=== PATIENT | male | born 1940 | race Caucasian/White ===

== ENCOUNTER 2020-10-05 14:39 | Observation (INO) | payer OTHER ==
[~2020-10-05] VITALS: Ht 172.7 cm; Wt 81.1 kg
[2020-10-05] MEDS ORDERED: PROSCAR 5MG TABL5 MG PO (15:29)
[2020-10-05] MEDS ORDERED: ASA81BEC PO (15:29)
[2020-10-05] MEDS ORDERED: METFORMIN HCL500 M3 PO (15:30)
[2020-10-05] MEDS ORDERED: FLOMAX0.4 MG PO (15:30)
[2020-10-05 15:43] VITALS: BP 96/58
[2020-10-05 15:56] LABS: HEMATOCRIT 37.6 % (42.0-52.0); HEMOGLOBIN 13.1 gm/dL (14.0-18.0); MCH 31.3 pg (26.0-34.0); MCHC 34.8 g/dL (28.0-37.0); MCV 90.1 fL (80.0-100.0); RBC 4.17 mil/uL (4.50-6.00); RDW 13.8 % (10.5-14.5); WBC 5.5 thou/uL (4.0-11.0)
[2020-10-05 16:01] LABS: ANION GAP 6 mmol/L (7-16); BUN 12 mg/dL (7-18); CALCIUM 8.7 mg/dL (8.5-10.1); CHLORIDE 100 mmol/L (98-107); CO2 28 mmol/L (21-32); CREATININE 0.8 mg/dL (0.7-1.3); GLUCOSE 92 mg/dL (74-106); SODIUM 134 mmol/L (136-145)
[2020-10-05 16:11] LABS: ALBUMIN 3.6 g/dL (3.4-5.0); SGOT 13 U/L (15-37); SGPT 18 U/L (30-65); TOTAL BILIRUBIN 0.7 mg/dL (0.2-1.0); TOTAL PROTEIN 6.5 g/dL (6.4-8.2); TROPONIN-I <0.06 ng/mL (<0.06)
[2020-10-05 16:35] LABS: CHOLESTEROL 171 mg/dL (<200); HDL CHOLESTEROL 44 mg/dL (>40); LDL CHOLESTEROL 116 mg/dL (<100); TC:HDL 3.9 Ratio (Not establshd); TRIGLYCERIDE 57 mg/dL (<150); VLDL 11 mg/dL (<40)
[2020-10-05 20:25] VITALS: BP 123/68
[2020-10-06 00:03] VITALS: BP 126/71
--- NOTE | 2020-10-06 02:03 | NUR ---
ASSUMED CARE OF PT AT 1900, ASSESSMENT COMPLETED NOTED. RIGHT MYNX CLOSURE CLEAN, DRY AND INTACT. PT DENIES CP, WILL CONTINUE TO MONITOR AND WORK TOWARDS PT'S POC.
[2020-10-06 03:49] LABS: HEMATOCRIT 34.6 % (42.0-52.0); HEMOGLOBIN 12.5 gm/dL (14.0-18.0); MCH 32.3 pg (26.0-34.0); MCHC 36.3 g/dL (28.0-37.0); RBC 3.89 mil/uL (4.50-6.00); RDW 13.6 % (10.5-14.5); WBC 6.8 thou/uL (4.0-11.0)
[2020-10-06 04:02] LABS: ALBUMIN 3.4 g/dL (3.4-5.0); ANION GAP 11 mmol/L (7-16); BUN 11 mg/dL (7-18); CALCIUM 8.3 mg/dL (8.5-10.1); CHLORIDE 99 mmol/L (98-107); CO2 25 mmol/L (21-32); CREATININE 0.8 mg/dL (0.7-1.3); GLUCOSE 97 mg/dL (74-106); POTASSIUM 3.9 mmol/L (3.5-5.1); SGOT 16 U/L (15-37); SGPT 19 U/L (30-65); SODIUM 135 mmol/L (136-145); TOTAL BILIRUBIN 0.8 mg/dL (0.2-1.0); TOTAL PROTEIN 6.2 g/dL (6.4-8.2); TROPONIN-I <0.06 ng/mL (<0.06)
[2020-10-06 05:26] VITALS: BP 126/71
--- NOTE | 2020-10-06 07:18 | EKG ---
[address] [email or web address] [address] ELECTROCARDIOGRAM REPORT Name: ELISE HURTADO Yane Room #: 214-P [facility] IN M.R.#: [id number] Admission: 10/05/20 Attend Phys: Nikolas Camacho MD, Discharge: Date of : 38 Report #: [id number] [facility] Test Date: 2020-10-05 Test Time: 15:29:16 Pat Name: ELISE HURTADO Department: Room: Gender: M Teen Counselor: FSCHWALBE : 1940 Requested By: Nikolas Camacho Order Number: [id number] MD: Eduardo Goddard Measurements Intervals [place] Rate: 51 P: MN: 188 QRS: -34 QRSD: 108 T: 0 QT: 427 QTc: 394 Interpretive Statements Atrial-paced complexes Left axis deviation Borderline low voltage, extremity leads Nonspecific T abnormalities, anterior leads No previous ECG available for comparison Electronically Signed On 10-06-2020 7:18:05 CDT by Eduardo Goddard [email or web address] <ELECTRONICALLY SIGNED> By: Eduardo Godadrd MD, [facility] 10/06/20 0718 D: [id number] 1529 Eduardo Goddard MD, FACC /EPI
[2020-10-06] MEDS ORDERED: LIPITOR40 MG PO (08:03)
[2020-10-06] MEDS ORDERED: EFFIENT10 MG PO (08:03)
[2020-10-06 09:01] VITALS: BP 126/63
[2020-10-06 10:18] VITALS: BP 126/63
--- NOTE | 2020-10-06 11:02 | NUR ---
PT RESTING COMFORTABLY WITH AT BEDSIDE. PT DC AT APPROX 1045 VIA WHEEL CHAIR AND . PT AFEBRILE, ADEQUATE UOP, NO BM, APPROPRIATE APPETITE. RIGHT GROIN SITE C/D/I, NO HEMATOMA, NO PAIN. PT AND WERE THOUROUGHLY UPDATED AND EDUCATED ON PT CONDITION, POC, AND DC INSTRUCTIONS. PT PROGRESSED TOWARDS POC.
--- NOTE | 2020-10-08 11:01 | CATHLAB ---
[facility] [place] [address] INVASIVE PROCEDURE REPORT Name: ELISE HURTADO Room #: 214-P [facility] Terrie Love#: [id number] Admission: 10/05/20 Attend Phys: Nikolas Camacho MD, Discharge: 10/06/20 Date of : 38 Report #: [id number] THIS REPORT FOR: cc: Lalit Simmons James L. DO Mancuso, Gerald M. MD [facility] ~ APPROVED REPORT Study performed: 10/05/2020 16:14:18 Patient Details Patient Status: IN Room #: The patient is a 80 year-old male Event Personnel Nikolas Camacho Weeder, Kisha Adam RN RN, Felisa Bell RTR Robel Lopez Alison RT(R)() Monitor Procedures Performed Art Access - R femoral artery* BILL Place w/wo Plasty Single LAD 144860 BILL Place w/wo Plasty Addl BR PDA C9601 DESADDL Left Heart Cath w/or w/o Coronaries [id number] [facility] Abdominal Aortography 290010 Hemostasis w/ Mynx 54066 Initial Mod Sed Same Phys/QHP Gr5y 034355 Procedure Narrative The Right Groin^ was infiltrated with 2% Lidocaine subcutaneous anesthesia. A PINNACLE 6FR Sheath #[id number] sheath was inserted into the RFA 6F^. Coronary angiography was performed using coronary diagnostic catheters. The right coronary system was accessed and visualized with a JR4 catheter. The left coronary system was accessed and visualized with a JL4 catheter. The left ventricle was accessed and visualized with a PIGTAIL catheter. The patient tolerated the procedure well and there were no complications associated with the procedure. There was no hematoma. Intraoperative Conscious Sedation Versed 0.5 mg Fluoro Time: 15.40 minutes Dose: DAP 30827.22 cGycm2 Contrast Type and Amount: Visipaque 194 ml [facility] [place] [address] INVASIVE PROCEDURE REPORT Name: ELISE HURTADO Room #: 214-P [facility]#: [id number] Admission: 10/05/20 Attend Phys: Nikolas ReannaJany Camacho, Discharge: 10/06/20 Date of : 38 Report #: [id number] Hemodynamics The aortic pressure is 112/55 mmHg with a mean of 77 mmHg. The left ventricular pressure is 104/8 mmHg with a mean of mmHg. The left ventricular end diastolic pressure is 16 mmHg. PCI Technique Lesion Percutaneous coronary intervention was performed on the mid left anterior descending artery segment. A LAUNCHER 6FR EBU 3.75 #[id number] Guide Catheter was used to engage the ostium. A Luge Wire .014 x 182CM #[id number] Interventional Guidewire was used to cross the lesion. STENT DEPLOYMENT A stent RESOLUTE ADELAIDA OTW 2.5 X 15 #[id number] was inserted and inflated up to 10.00atm for 32seconds. Additional Inflation: 16.00atm for 27seconds. PCI Technique Lesion 2 Percutaneous Coronary Intervention was performed on the first diagnonal branch segment. A LAUNCHER 6FR EBU 3.75 #[id number] Guide Catheter was used to engage the ostium. A Luge Wire .014 x 182CM #[id number] Interventional Guidewire was used to cross the lesion. Balloon Dilation A Balloon catheter Sprinter OTW 2.25 x 12 #[id number] was inserted and inflated up to 4atm for 33seconds. Additional Inflation: 8.00atm for 38seconds. Additional Inflation: 10.00atm for 47seconds. PCI Technique Lesion 3 Percutaneous Coronary Intervention was performed on the right posterior descending artery. A LAUNCHER 6FR JR 4 90CM #[id number] Guide Catheter was used to engage the ostium. A Luge Wire .014 x 182CM #[id number] Interventional Guidewire was used to cross the lesion. Stent Deployment A stent RESOLUTE ADELAIDA OTW 2.25 X 8 #[id number] was inserted and inflated up to 16.00atm for 33seconds. Conclusion #1 Successful PTCA stent of a proximal mid LAD lesion with placement of a 2.5 x 15 resolute [place] stent postdilated 2.6 mm BALWINDER grade III flow. This stent did intermediate a diagonal branch that was previously dilated. #2 successful PTCA of the diagonal branch prior to the LAD stent jailing with a residual of 30 to 40% with improvement in the flow [address] [address] INVASIVE PROCEDURE REPORT Name: ELISE HURTADO Room #: 214-P [facility] IN M.R.#: [id number] Admission: 10/05/20 Attend Phys: Nikolas Camacho, Discharge: 10/06/20 Date of : 38 Report #: [id number] diagonal system. #3 successful primary stent of an ostial PDA lesion with placement of a 2.25 x 8 resolute [place] postdilated 2.4 mm BALWINDER grade III flow in a dominant PDA. 80% initial lesion. #4 the left main is mildly calcified there is an ostial lesion of 30 to 40% on this left main which gives rise to the LAD and circumflex. #5 circumflex OM with mild irregularities no occlusive disease #6 normal left ventricular size with subtle anterior apical wall leg EF 50% range. #7 abdominal aortogram revealing mild tortuosity no aneurysm formation. Brisk distal flow Recommendations and plan: Continue aggressive risk factor modification. Patient has resolution of EKG changes and chest pain. Hemodynamically stable. Will transfer to CCU to follow post coronary stent protocol. <ELECTRONICALLY SIGNED> By: Nikolas Camacho MD, FACC 10/08/20 1100 1100 99 Nikolas Camacho MD, FACC /INF
== END 2020-10-06 10:58 | disposition home or self-care (01) ==
LOC: RAD 14:39 → EDSTATUS 14:40 → 2N 14:41
PROVIDERS: Nurse Practitioner Adult Health; ADMIT Internal Medicine Cardiovascular Disease; ATTEND Internal Medicine Cardiovascular Disease
DX: I21.4 Non-ST elevation (NSTEMI) myocardial infarction (principal); I25.10 Atherosclerotic heart disease of native coronary artery without angina pectoris; E78.00 Pure hypercholesterolemia, unspecified; G62.9 Polyneuropathy, unspecified; E11.9 Type 2 diabetes mellitus without complications; J44.9 Chronic obstructive pulmonary disease, unspecified; N40.0 Benign prostatic hyperplasia without lower urinary tract symptoms; Z88.8 Allergy status to other drugs, medicaments and biological substances; Z88.6 Allergy status to analgesic agent; Z90.49 Acquired absence of other specified parts of digestive tract; Z85.46 Personal history of malignant neoplasm of prostate; Z79.899 Other long term (current) drug therapy; Z79.84 Long term (current) use of oral hypoglycemic drugs
CPT/HCPCS: 10081

== ENCOUNTER → 2020-10-20 | Outpatient (CLI) | payer OTHER ==
[~2020-10-20] MED LIST: ASA81BEC PO; EFFIENT10 MG PO; FLOMAX0.4 MG PO; LIPITOR40 MG PO; METFORMIN HCL500 M3 PO; PROSCAR 5MG TABL5 MG PO
== END ==
LOC: SJCVCIMAG 10:58
PROVIDERS: ATTEND Internal Medicine Cardiovascular Disease
DX: I25.10 Atherosclerotic heart disease of native coronary artery without angina pectoris (principal); I21.4 Non-ST elevation (NSTEMI) myocardial infarction; E11.9 Type 2 diabetes mellitus without complications; E78.5 Hyperlipidemia, unspecified; R00.1 Bradycardia, unspecified; J44.9 Chronic obstructive pulmonary disease, unspecified; E11.42 Type 2 diabetes mellitus with diabetic polyneuropathy; E78.00 Pure hypercholesterolemia, unspecified; Z85.46 Personal history of malignant neoplasm of prostate; Z82.49 Family history of ischemic heart disease and other diseases of the circulatory system; Z79.82 Long term (current) use of aspirin; Z79.84 Long term (current) use of oral hypoglycemic drugs; Z79.899 Other long term (current) drug therapy

== ENCOUNTER → 2021-02-15 | Outpatient (CLI) | payer OTHER | LOC: SJCVC 11:11 | PROVIDERS: ATTEND Internal Medicine Cardiovascular Disease | DX: R94.31 Abnormal electrocardiogram [ECG] [EKG] (principal); I45.10 Unspecified right bundle-branch block; I25.10 Atherosclerotic heart disease of native coronary artery without angina pectoris; E78.5 Hyperlipidemia, unspecified; R00.1 Bradycardia, unspecified; E11.9 Type 2 diabetes mellitus without complications; E78.00 Pure hypercholesterolemia, unspecified; J44.9 Chronic obstructive pulmonary disease, unspecified; Z85.46 Personal history of malignant neoplasm of prostate; Z79.82 Long term (current) use of aspirin; Z79.899 Other long term (current) drug therapy; Z95.818 Presence of other cardiac implants and grafts; Z82.49 Family history of ischemic heart disease and other diseases of the circulatory system ==